=== PATIENT | female | born 1940 | race Two or more races ===

== ENCOUNTER → 2021-01-19 | Outpatient (CLI) | payer MEDICARE ==
[~2021-01-19] MED LIST: ATOR10TA9 PO; CHOL10003 PO; LEVO100T5 PO; LISI-167 PO; TEMA15CA PO; [UNRECOGNIZED DRUG - OTHER] PO
[2021-01-19 16:28] LABS: MICROSCOPIC AUTO
[2021-01-19 16:36] LABS: ALANINE AMINOTRANSFERASE 29 U/L (12-78); ALBUMIN 3.9 g/dL (3.4-5.0); ANION GAP 7 mmol/L (5-15); CALCIUM 9.6 mg/dL (8.5-10.1); CHLORIDE 106 mmol/L (98-107); CREATININE 1.18 mg/dL (0.55-1.02)
[2021-01-19 16:38] LABS: ALKALINE PHOSPHATASE 39 U/L (45-117); BILIRUBIN,TOTAL 0.4 mg/dL (0.2-1.0); TOTAL PROTEIN 7.7 g/dL (6.4-8.2)
== END | disposition home or self-care (01) ==
LOC: STAR 14:47
PROVIDERS: ATTEND Obstetrics & Gynecology Female Pelvic Medicine and Reconstructive Surgery
DX: Z01.818 Encounter for other preprocedural examination (principal); Z20.822 Contact with and (suspected) exposure to COVID-19
CPT/HCPCS: 36415; 80053; 81001; 93005; U0003; U0005

== ENCOUNTER 2021-01-26 10:17 | Day surgery (SDC) | payer MEDICARE ==
[~2021-01-26] VITALS: Ht 162.6 cm; Wt 70.2 kg
[~2021-01-26 10:17] MED LIST changes: +BUPIVACAINE/PF 0.25% ONE; +EPINEPHRINE 1 MG/ML, 1ML ONE; +GENTAMICIN 80 MG/2 ML ONE; +VANCOMYCIN 500 MG ONE
[2021-01-26] MEDS ORDERED: CHLORHEXIDINE 15 ML UDC ONE (10:48)
[2021-01-26] MEDS ORDERED: CHLORHEXIDINE 15 ML UDC PO ONE (11:00)
[2021-01-26] MEDS ORDERED: LACTATED RINGERS 1,000 ML IV SCH (11:00)
[2021-01-26] MEDS ORDERED: MIDAZOLAM 1 MG/ML, 2ML ONE (13:15)
[2021-01-26] MEDS ORDERED: FENTANYL PF 100 MCG/2ML ONE (13:22)
[2021-01-26] MEDS ORDERED: PROPOFOL 10 MG/ML, 20ML ONE (13:23)
[2021-01-26] MEDS ORDERED: LIDOCAINE-MPF 2% ,5ML ONE (13:24)
[2021-01-26] MEDS ORDERED: ONDANSETRON 2MG/ML, 2ML ONE (14:29)
[2021-01-26] MEDS ORDERED: CEFAZOLIN 1,000 MG ONE ×2 (14:29)
[2021-01-26] MEDS ORDERED: DEXAMETHASONE 4 MG/ML, 1ML ONE ×2 (14:29)
[2021-01-26] MEDS ORDERED: PROPOFOL 50 ML ONE (14:40)
[2021-01-26] MEDS ORDERED: HYDROmorphone 1 MG/ML, 1ML INJ IVPush PRN (15:00)
[2021-01-26] MEDS ORDERED: ACETAMINOPHEN 325 MG TABLET PO PRN (15:00)
[2021-01-26] MEDS ORDERED: FENTANYL PF 100 MCG/2ML IV PRN (15:00)
[2021-01-26] MEDS ORDERED: hydrALAzine 20 MG/ML, 1ML IV PRN (15:00)
[2021-01-26] MEDS ORDERED: ONDANSETRON 2MG/ML, 2ML IVPush PRN (15:00)
[2021-01-26] MEDS ORDERED: OXYcodone 5 MG/5 ML ORAL.SOL UDC PO PRN (15:00)
[2021-01-26] MEDS ORDERED: LABETALOL 5MG/ML, 20ML IV PRN (15:00)
[2021-01-26] MEDS ORDERED: MEPERIDINE/PF 25MG/ML,1ML ONE (15:29)
[2021-01-26] MEDS ORDERED: MEPERIDINE/PF 25MG/0.5ML IVPush ONE (16:00)
== END 2021-01-26 17:55 | disposition home or self-care (01) ==
LOC: EDSEX → OUT 10:17
PROVIDERS: ATTEND Obstetrics & Gynecology Female Pelvic Medicine and Reconstructive Surgery
DX: N39.46 Mixed incontinence (principal); N81.89 Other female genital prolapse; I10 Essential (primary) hypertension; M19.90 Unspecified osteoarthritis, unspecified site; E03.9 Hypothyroidism, unspecified; E78.00 Pure hypercholesterolemia, unspecified; Z88.1 Allergy status to other antibiotic agents; Z88.2 Allergy status to sulfonamides; Z79.899 Other long term (current) drug therapy; Z72.89 Other problems related to lifestyle; Z90.49 Acquired absence of other specified parts of digestive tract; Z98.890 Other specified postprocedural states
CPT/HCPCS: 57265; 57282; 57288; C1771; J0171; J0690; J1100; J1580; J2175; J2250; J2405; J2704; J3010; J3370; J7120